=== PATIENT | male | born 1970 | race African-American/Black ===

== ENCOUNTER → 2016-12-07 | Outpatient (CLI) | payer BC ==
--- NOTE | ~2016-12-07 | MR103 ---
[facility] A Service of [facility] & [facility] RADIOLOGY TEXT RESULTS PATIENT: LEE HEATH LOCATION: [facility] : 74 UNIT #: [id number] AGE: [address]: Kay Valdez SEX: M ORDER DR: [id number] [place] [id number] O MR#: [id number] Acc #: [id number] NAME: LEE HEATH : 1970 SEX: M STUDY DATE/TIME: 12/07/2016 15:51 UNIT: [facility] ROOM: STUDY DESCRIPTION: MR Knee Wo Contrast Lt Attending Physician: Kay Valdez P.A.-C. Referring Physician: Kay Valdez P.A.-C. Ordering Physician: Oneil Faustin M.D. Primary Care Physician: Ren Vasquez M.D. MRI CENTER REPORT This report is preliminary unless electronic signature is present. EXAM Left knee MRI without contrast 12/07/2016 HISTORY 46-year-old male with left knee pain for 1 year. No prior left knee surgery. COMPARISON Knee x-rays 11/02/2016. Left knee x-rays 12/21/2014. TECHNIQUE Routine unenhanced multiplanar, multisequence high field MR imaging of the left knee was performed. FINDINGS There is a degenerative type tear involving the posterior horn medial meniscus which involves both articular surfaces. There is a macerated, degenerative type tear involving majority of the lateral meniscus. Cruciate and collateral ligaments appear intact. Extensor mechanism is intact. There is a moderate joint effusion. There are multiple loose bodies noted within the joint. There are at least 2 loose bodies posterior to the posterior root attachment of the medial meniscus measuring 8 mm and 7 mm respectively. There are multiple loose bodies located in the inferior aspect of the medial gutter adjacent to the medial tibial plateau, the largest measuring at least 1 cm in size. There is a very small popliteal cyst. Patellar articular cartilage is intact. 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 Patellofemoral marginal osteophytes are present. Extensive full-thickness articular cartilage [facility] A Service of [facility] & [facility] RADIOLOGY TEXT RESULTS PATIENT: LEE HEATH LOCATION: [facility] : 74 UNIT #: [id number] AGE: [address]: Kay Valdez SEX: M ORDER DR: loss throughout the lateral compartment. Multifocal moderate-grade chondromalacia throughout the medial compartment. Reactive subchondral marrow edema in the medial tibial plateau and lateral tibial plateau. Remainder of the bone marrow signal is within expected limits. Visualized musculature is unremarkable. IMPRESSION 1. Degenerative-type tear of the posterior horn medial meniscus. 2. Macerated, degenerative type tear involving the majority of the lateral meniscus. 3. No acute ligament injury. 4. Tricompartmental arthrosis, detailed above. This is most severe in the lateral compartment with extensive full-thickness articular cartilage loss. 5. Moderate joint effusion with loose bodies noted posterior to the posterior root attachment of the medial meniscus as well as the inferior aspect of the medial gutter adjacent to the medial tibial plateau. Dictated by... Hamilton Montiel M.D. THIS IS AN ELECTRONICALLY VERIFIED REPORT Hamilton Montiel M.D. at 12/09/2016 3:44 PM MEGHA/andra TD: 12/08/2016 17:48 JOB #: [id number] MRI CENTER REPORT Page 1 of 1
== END | disposition home or self-care (01) ==
LOC: SMRI 13:23
DX: M17.12 Unilateral primary osteoarthritis, left knee (principal); M23.222 Derangement of posterior horn of medial meniscus due to old tear or injury, left knee; M23.201 Derangement of unspecified lateral meniscus due to old tear or injury, left knee; M25.462 Effusion, left knee; M23.42 Loose body in knee, left knee
CPT/HCPCS: 73721